=== PATIENT | male | born 1970 | race Caucasian/White ===

== ENCOUNTER 2018-12-04 00:55 | Observation (INO) | payer OTHER ==
[~2018-12-04] VITALS: Ht 175.3 cm; Wt 77.3 kg
[2018-12-04 01:27] LABS: APPEARANCE CLEAR (CLEAR); COLOR YELLOW (YELLOW); SPECIFIC GRAVITY 1.025 (1.005-1.020)
[2018-12-04 01:27] LABS: HEMATOCRIT 48.4 % (42.0-54.0); HEMOGLOBIN 17.5 g/dL (13.5-17.5); LYMPHOCYTES 9.8 % (15-50); MCH 32.6 pg (26.0-34.0); MCHC 36.2 g/dL (31.0-37.0); MCV 90.1 fL (80.0-100.0); MEAN PLATELET VOLUME 9.2 fL (7.4-10.4); NEUTROPHILS 87.3 % (40-80); PLATELET COUNT 295 10x3/uL (130-400); RBC 5.37 10x6/uL (4.20-6.10); RDW 13.5 % (11.5-14.5); WBC 14.6 10x3/uL (4.8-10.8)
[2018-12-04 01:28] LABS: BILIRUBIN NEGATIVE (NEGATIVE); GLUCOSE NEGATIVE (NEGATIVE); KETONE NEGATIVE (NEGATIVE); NITRITE NEGATIVE (NEGATIVE); PROTEIN NEGATIVE (NEGATIVE); UROBILINOGEN NORMAL (NORMAL)
[2018-12-04 01:49] LABS: UDS - AMPHET NEGATIVE QUAL (NEGATIVE); UDS - BARB NEGATIVE QUAL (NEGATIVE); UDS - BENZO NEGATIVE QUAL (NEGATIVE); UDS - COCAINE NEGATIVE QUAL (NEGATIVE); UDS - OPIATE NEGATIVE QUAL (NEGATIVE); UDS - PCP NEGATIVE QUAL (NEGATIVE); UDS - THC NEGATIVE QUAL (NEGATIVE)
[2018-12-04 02:04] LABS: ALBUMIN 3.6 g/dL (3.4-5.0); ALKALINE PHOSPHATASE 131 U/L (46-116); ALT (SGPT) 20 U/L (10-68); CALC OSMOLALITY 282 mosm/kg (275-300); CALCIUM 9.2 mg/dL (8.5-10.1); CARBON DIOXIDE 26.5 mmol/L (21.0-32.0); CHLORIDE - SERUM 105 mmol/L (98-107); GLUCOSE 107 mg/dL (74-106); LIPASE 264 U/L (73-393); POTASSIUM - SERUM 3.8 mmol/L (3.5-5.1); PROTEIN - SERUM 7.2 g/dL (6.4-8.2); SODIUM 142 mmol/L (136-145); TROPONIN-I < 0.017 ng/mL (0.000-0.060); UREA NITROGEN 12 mg/dL (7-18); eGFR NON AFRICAN AMERICAN 84 mL/min (90-120)
[2018-12-04 02:28] VITALS: BP 110/64
--- NOTE | 2018-12-04 02:30 | NUR ---
PATIENT SLEEPING, FAMILY AT BEDSIDE. NO DISTRESS NOTED. WILL CONTINUE TO MONITOR.
--- NOTE | 2018-12-04 03:30 | NUR ---
PATIENT SLEEPING, MAINSTREAMING FACILITATOR IN THE BED WITH PATIENT. NO DISTRESS NOTED. WILL CONTINUE TO MONITOR.
[2018-12-04 04:00] VITALS: BP 94/66
--- NOTE | 2018-12-04 04:30 | NUR ---
PATIENT ARRIVED ON UNIT VIA WHEELCHAIR WITH HOSPITAL STAFF. PATIENT ORIENTATED TO ROOM, SURROUNDINGS AND STAFF. CALL LIGHT IN REACH.
[2018-12-04 04:47] VITALS: BP 94/66; BMI 25.1
--- NOTE | 2018-12-04 07:10 | NUR ---
INITIAL ROUNDING ON THE PATIENT, HE IS AWAKE AND SEEMS A BIT NERVOUS. HE IS PREPARED TO HAVE A SCAN TO THE GALLBLADDER TODAY, THEREFORE IS NPO. IVF INFUSING TO THE RIGHT FA, PATIENT DENIES PAIN AT THIS TIME. CALL LIGHT IN REACH
[2018-12-04 08:33] VITALS: BP 138/57
[2018-12-04 09:51] VITALS: Ht 175.3 cm; Wt 77.3 kg
--- NOTE | 2018-12-04 10:50 | MORECARE ---
CASE MANAGEMENT DISCHARGE SUMMARY PATIENT: JO ANN JAIMES UNIT: [id number] ADM DATE: 12/04/18 AGE: 48 : 68 SEX: M ROOM/BED: D.1202 AUTHOR: NOÉ HENSON PHYSICIAN: REFERRING PHYSICIAN: CARY LUNA MD DATE OF SERVICE: 12/04/18 Discharge Plan Patient Name: JO ANN [facility]IM[facility] [facility] 1970 Planned Disposition: Home Anticipated Discharge Date: Discharge Date: Expected LOS: Initial Reviewer: [id number] Initial Review Date: 12/04/2018 Generated: 12/04/18 11:50 am Patient Name: JO ANN JAIMES Page [phone] at 1050 All edits/amendments must be made on the electronic document DICTATION DATE: 12/04/18 1049 TRAFFIC CONTROL TECHNICIAN: RASHID 12/04/18 1049 RPT#: [id number] DC DATE: STATUS: ADM IN [facility] [address] [place] [address] END OF REPORT
--- NOTE | 2018-12-04 11:00 | MORECARE ---
CASE MANAGEMENT DISCHARGE SUMMARY PATIENT: JO ANN JAIMES UNIT: [id number] ADM DATE: 12/04/18 AGE: 48 : 68 SEX: M ROOM/BED: D.1202 AUTHOR: SIXTO,DOC PHYSICIAN: REFERRING PHYSICIAN: ACRY LUNA MD DATE OF SERVICE: 12/04/18 Discharge Plan Patient Name: JO ANN JAIMES Facility: [facility]:[place] : 1970 Planned Disposition: Home Anticipated Discharge Date: Discharge Date: Expected LOS: Initial Reviewer: [email or web address] Initial Review Date: 12/04/2018 Generated: 12/04/18 11:59 am Comments DCP- Discharge Planning Updated by [email or web address]: Miya Mayo on 12/04/18 9:[address] Patient Name: JO ANN JAIMES Admission Status: ER Accout number: [id number] Admission Date: 12-04-2018 : 1970 Admission Diagnosis: Attending: CARY LUNA Current LOS: 1 Anticipated DC Date: Planned Disposition: Home Primary Insurance: [facility] Discharge Planning Comments: CM MEET WITH PT AFTER GETTING VERBAL CONSENT TO CONTINUE WITH INITAL ASSESSMENT AND DISCHARGE NEEDS. CM EDUCATED ON ROLE OF CM AND THE SERVICES AVALIABLE SUCH HH, REHAB AND DME SERVICES. PT LIVES AT HOME WITH FAMILY MAHNAZ [id number]. SHE WILL ALSO BE THE ONE DRIVING HOME. PT FEELS HOME IS A SAFE DC PLAN. CM WILL CONTINUE TO FOLLOW Abrasive Coating Machine Operator: Miya Mayo DCPIA - Discharge Planning Initial Assessment Updated by [id number]: Miya Mayo on 12/04/18 10:51 am * Is the patient Alert and Oriented? Yes * How many steps to enter\exit or inside your home? * PCP none * Pharmacy [facility] * Preadmission Environment Home with Family * ADLs Independent * Verbal permission to speak to the caregivers and representatives has been obtained from the patient. N/A * Community resources currently utilized None * Additional services required to return to the preadmission environment? No * Can the patient safely return to the preadmission environment? Yes * Has this patient been hospitalized within the prior 30 days at any hospital? No Last DP export: 12/04/18 9:50 a Patient Name: JO ANN JAIMES Page [id number] at 1100 All edits/amendments must be made on the electronic document DICTATION DATE: 12/04/181058 TRANSMISSION SYSTEMS OPERATOR: RASHID 12/04/181058 RPT#: [id number] DC DATE: STATUS: ADM IN [facility] [address] [place] [address] END OF REPORT
[2018-12-04 13:07] VITALS: BP 102/62
[2018-12-04 21:34] VITALS: BP 106/55
[2018-12-05] VITALS: BP 98/61
[2018-12-05 04:00] VITALS: BP 113/69
--- NOTE | 2018-12-05 04:47 | NUR ---
PT IN BED IN LOW FOWLERS POSITION. ALERT AND ORIENTED X4. RESPIRATIONS EVEN AND UNLABORED. VS STABLE AND AFEBRIL. NO CUES OF DISTRESS NOTED. DENIES ANY OTHER NEEDS AT THIS TIME. BED LOW, SIDE RAILS UP X2. CALL LIGHT IN REACH. WILL CONTINUE TO MONITOR.
--- NOTE | 2018-12-05 07:15 | NUR ---
INITIAL ROUNDING, PATIENT IS AWAKE, DRESSED IN CLOTHES, AND WALKING IN THE HALLS. PATIENT NPO FOR PROCEDURE THIS MORNING.
[2018-12-05 08:56] VITALS: BP 126/73
[2018-12-05 09:34] LABS: HEMATOCRIT 45.7 % (42.0-54.0); HEMOGLOBIN 15.7 g/dL (13.5-17.5); MCH 31.5 pg (26.0-34.0); MCHC 34.4 g/dL (31.0-37.0); MCV 91.6 fL (80.0-100.0); MEAN PLATELET VOLUME 9.3 fL (7.4-10.4); PLATELET COUNT 248 10x3/uL (130-400); RBC 4.99 10x6/uL (4.20-6.10); RDW 13.7 % (11.5-14.5)
[2018-12-05 09:39] LABS: WBC 7.8 10x3/uL (4.8-10.8)
[2018-12-05 09:41] LABS: BASOPHILS 0.1 % (0-2); EOSINOPHILS 1.9 % (0-7); IMMATURE GRANULOCYTES 0.1 % (0-5); LYMPHOCYTES 30.7 % (15-50); MONOCYTES 6.6 % (2-11); NEUTROPHILS 60.6 % (40-80)
[2018-12-05 09:49] LABS: ALBUMIN 3.3 g/dL (3.4-5.0); ALKALINE PHOSPHATASE 114 U/L (46-116); ALT (SGPT) 17 U/L (10-68); BILIRUBIN - TOTAL 0.76 mg/dL (0.2-1.3); CALC OSMOLALITY 283 mosm/kg (275-300); CALCIUM 8.4 mg/dL (8.5-10.1); CARBON DIOXIDE 28.3 mmol/L (21.0-32.0); CHLORIDE - SERUM 108 mmol/L (98-107); CREATININE - SERUM 1.1 mg/dL (0.6-1.3); GLUCOSE 85 mg/dL (74-106); POTASSIUM - SERUM 3.7 mmol/L (3.5-5.1); PROTEIN - SERUM 6.6 g/dL (6.4-8.2); SODIUM 143 mmol/L (136-145); UREA NITROGEN 12 mg/dL (7-18); eGFR NON AFRICAN AMERICAN 75 mL/min (90-120)
[2018-12-05] MEDS ORDERED: COLACE100 MG PO (15:50)
[2018-12-05] MEDS ORDERED: HYDROCODON-ACE1 EAC7 PO (15:51)
[2018-12-05 16:39] VITALS: BP 139/75
[2018-12-05 16:52] VITALS: BP 130/78
--- NOTE | 2018-12-05 18:03 | NUR ---
REMOVED THE IV FROM THE LEFT FA, CATH TIP INTACT. APPLIED A DRY DRESSING TO THE UMBILICUS AREA/LAP SITE, WHERE LIGHT PINK TINGED DRAINAGE NOTED. NO STERI STRIP IN PLACE. PATIENT REPORTS HE HAS AN APPOINTMENT WITH HIS DOCTOR IN THE AM TO HELP FILL OUT PAPERS FOR HIS JOB AND HE WILL FOLLOW UP WITH HER
--- NOTE | 2018-12-06 09:51 | MORECARE ---
CASE MANAGEMENT DISCHARGE SUMMARY PATIENT: JO ANN JAIMES UNIT: [id number] ADM DATE: 12/04/18 AGE: 48 : 68 SEX: M ROOM/BED: D.1202 AUTHOR: SIXTO,DOC PHYSICIAN: REFERRING PHYSICIAN: CARY LUNA MD DATE OF SERVICE: 12/06/18 Discharge Plan Patient Name: JO ANN JAIMES Facility: [facility]:[place] : 1970 Planned Disposition: Home Anticipated Discharge Date: Discharge Date: 12/05/2018 Expected LOS: Initial Reviewer: [email or web address] Initial Review Date: 12/04/2018 Generated: 12/06/18 10:51 am DCP- Discharge Planning Updated by [email or web address]: Miya Mayo on 12/04/18 9:[address] Patient Name: JO ANN JAIMES Admission Status: ER Accout number: [id number] Admission Date: 12-04-2018 : 1970 Admission Diagnosis: Attending: CARY LUNA Current LOS: 1 Anticipated DC Date: Planned Disposition: Home Primary Insurance: [facility] Discharge Planning Comments: CM MEET WITH PT AFTER GETTING VERBAL CONSENT TO CONTINUE WITH INITAL ASSESSMENT AND DISCHARGE NEEDS. CM EDUCATED ON ROLE OF CM AND THE SERVICES AVALIABLE SUCH HH, REHAB AND DME SERVICES. PT LIVES AT HOME WITH FAMILY MAHNAZ [id number]. SHE WILL ALSO BE THE ONE DRIVING HOME. PT FEELS HOME IS A SAFE DC PLAN. CM WILL CONTINUE TO FOLLOW Facilities Supervisor: Miya Mayo DCPIA - Discharge Planning Initial Assessment Updated by [email or web address]: Miya Mayo on 12/04/18 10:51 am * Is the patient Alert and Oriented? Yes * How many steps to enter\exit or inside your home? * PCP none * Pharmacy [facility] * Preadmission Environment Home with Family * ADLs Independent * Verbal permission to speak to the caregivers and representatives has been obtained from the patient. N/A * Community resources currently utilized None * Additional services required to return to the preadmission environment? No * Can the patient safely return to the preadmission environment? Yes * Has this patient been hospitalized within the prior 30 days at any hospital? No Last DP export: 12/04/18 9:59 a Patient Name: JO ANN JAIMES Page [phone] at 0951 All edits/amendments must be made on the electronic document DICTATION DATE: 12/06/18950 CARD GAME OPERATOR: RASHID 12/06/18950 RPT#: [id number] DC DATE:12/05/18 STATUS: DIS IN [facility] [address] [place] [address] END OF REPORT
== END 2018-12-05 18:20 | disposition home or self-care (01) ==
LOC: D.ER 00:55 → OBSVTIME 04:01 → D.M3 04:01 → D.ER 04:16 → D.M3 12-05 18:20
PROVIDERS: Family Medicine; ADMIT Internal Medicine Nephrology; ATTEND Internal Medicine Nephrology
DX: K80.20 Calculus of gallbladder without cholecystitis without obstruction (principal); F17.213 Nicotine dependence, cigarettes, with withdrawal; R16.0 Hepatomegaly, not elsewhere classified